=== PATIENT | female | born 1955 | race Caucasian/White ===

== ENCOUNTER 2023-08-02 12:47 | Outpatient (CLI) | payer MEDICARE ==
--- NOTE | 2023-08-02 13:50 | CT Report ---
PROCEDURE: Chest WO INDICATIONS: ABN CHEST CT TECHNIQUE: A CT scan of the chest was performed. Intravenous contrast media was not administered. Images were re corded and evaluated at appropriate window settings. Reformats: axial MIP of the chest, coronal and s agittal. For radiation dose reduction, the following was used: automated exposure control, adjustment of mA and/or kV according to patient size. COMPARISON: None. FINDINGS: Image quality: Diagnostic. Chest wall and lower neck: No thyroid nodule which requires sonographic follow up. No axillary or sup raclavicular adenopathy by size. Lungs and pleura: No consolidation. No pleural effusions. No pneumothorax. Biapical pleural-parenchy mal scarring. 3 mm right upper lobe nodule (4/60). Several additional pulmonary micronodules measurin g 3 mm or less. Mild patchy ground glass nodularity within the right greater than left lung apices. Mediastinum: Heart size is normal. Severe coronary artery calcifications. No pericardial effusion. No large vessel abnormality. Atherosclerotic vascular calculations. No mediastinal adenopathy by size c riteria. Small hiatal hernia. Bones: No aggressive osseous abnormality. Degenerative changes of the spine. Diffusely decreased osse ous mineralization. Upper Abdomen: Unremarkable. IMPRESSION: 1.Several pulmonary micronodules measuring 3 mm or less. Optional one year chest CT can be obtained p er Fleischner criteria if patient is high risk. 2.Biapical pleural-parenchymal scarring with mild patchy groundglass within the right greater than le ft lung apices, may be infectious or inflammatory in etiology or related to scarring. 3.Severe coronary calcifications. Reviewed by: José Miguel Becerril MD on 08/02/2023 1:48 PM PDT Approved by: José Miguel Becerril MD on 08/02/2023 1:48 PM PDT Station ID: [id number]
== END 2023-08-02 12:48 | disposition home or self-care (01) ==
LOC: DI 12:47
PROVIDERS: ATTEND Internal Medicine
DX: J98.4 Other disorders of lung (principal); I25.10 Atherosclerotic heart disease of native coronary artery without angina pectoris